=== PATIENT | male | born 1940 | race Caucasian/White ===

== ENCOUNTER → 2016-08-08 | Outpatient (CLI) | payer OTHER ==
--- NOTE | 2016-08-08 14:54 | DX ---
PA and Lateral Chest August 08, 2016 Indication: Painful cough for 3 to 4 days. Comparison: Two-view chest dated October 22, 2006. Findings: The lungs are well aerated and clear. No airspace consolidation, edema, or effusion. Minima l diffuse peribronchial thickening and calcified coronary plaque versus stent overlying the heart on the lateral view are unchanged. Thoracic aorta is normal caliber with mild calcified mural plaque. Montiel rdware overlying the lower cervical spine, suture anchors overlying the right humeral head, and multi level moderate degenerative disk disease are unchanged. Impression: 1. No pneumonia. 2. Chronic mild airways disease and stigmata of cardiovascular disease are unchanged.
== END ==
LOC: BMCIMAGING 14:02
PROVIDERS: ATTEND Internal Medicine
DX: J42 Unspecified chronic bronchitis (principal)

== ENCOUNTER → 2016-09-26 | Outpatient (CLI) | payer OTHER, MEDICARE | LOC: FLAB 16:48 → EDSTATUS 16:50 → FIMAGING 16:50 | PROVIDERS: ATTEND Physician Assistant | DX: Z09 Encounter for follow-up examination after completed treatment for conditions other than malignant neoplasm (principal); Z98.1 Arthrodesis status ==

== ENCOUNTER → 2016-11-10 | Outpatient (CLI) | payer OTHER, MEDICARE | LOC: BHFA 09:00 | PROVIDERS: ATTEND Internal Medicine Interventional Cardiology | DX: I25.10 Atherosclerotic heart disease of native coronary artery without angina pectoris (principal); E78.5 Hyperlipidemia, unspecified; I10 Essential (primary) hypertension; I49.9 Cardiac arrhythmia, unspecified ==

== ENCOUNTER → 2016-11-18 | Outpatient (CLI) | payer OTHER, MEDICARE | LOC: BHFA 13:00 | PROVIDERS: ATTEND Internal Medicine Cardiovascular Disease | DX: I25.10 Atherosclerotic heart disease of native coronary artery without angina pectoris (principal) | CPT/HCPCS: 78452; 93017; A9500 ==

== ENCOUNTER → 2018-11-26 | Outpatient (CLI) | payer OTHER, MEDICARE | LOC: FIMAGING 14:48 | PROVIDERS: ATTEND Internal Medicine | DX: I65.23 Occlusion and stenosis of bilateral carotid arteries (principal) | CPT/HCPCS: 82607-90 ==